=== PATIENT | female | born 1955 | race Caucasian/White ===

== ENCOUNTER 2018-10-29 06:01 | Inpatient (IN) | payer OTHER ==
[2018-10-29] MEDS ORDERED: FENTAnyl 50 MCG/ML VIAL (06:23)
[2018-10-29] MEDS ORDERED: PROPOFOL 20 ML (06:23)
[2018-10-29] MEDS ORDERED: LIDOCAINE 2% (SDV) 5 ML INJ (06:23)
[2018-10-29] MEDS ORDERED: ROCURONIUM 50 MG INJ (06:23)
[2018-10-29] MEDS ORDERED: MIDAZOLAM 1 MG/ML 2 ML INJ (06:23)
[2018-10-29] MEDS ORDERED: NEOSTIGMINE 3 MG/3 ML SYRINGE (06:23)
[2018-10-29] MEDS ORDERED: GLYCOPYRROLATE 0.4 MG INJ (06:23)
[2018-10-29] MEDS ORDERED: ONDANSETRON 4 MG INJ (06:24)
[2018-10-29] MEDS ORDERED: DEXAMETHASONE 4 MG/ML 1 ML INJ ×2 (06:24→07:58)
[2018-10-29] MEDS ORDERED: SUCCINYLCHOLINE CHLORIDE 100 MG/5 ML SYG IV (06:32)
[2018-10-29] MEDS ORDERED: CEFAZOLIN 1 GM INJ ×2 (06:32→07:00)
[2018-10-29 06:51] LABS: ADD MAN DIFF? NO
[2018-10-29 06:53] LABS: WHITE BLOOD COUNT 5.1 10^3/ul (4.8-10.8)
[2018-10-29 06:53] LABS: BASOPHIL # 0.1 10^3/ul (0.0-0.1); EOSINOPHILS # 0.1 10^3/ul (0.0-0.5); EOSINOPHILS % 1.4 % (0.0-7.0); HEMATOCRIT 39.6 % (37.0-47.0); HEMOGLOBIN 13.4 g/dl (12.0-16.0); LYMPHOCYTES # 1.7 10^3/ul (0.8-2.9); LYMPHOCYTES % 33.1 % (15.0-51.0); MEAN CORPUSCULAR HEMOGLOBIN 32.1 pg (29.0-33.0); MEAN CORPUSCULAR HGB CONC 33.8 g/dl (32.0-37.0); MEAN PLATELET VOLUME 10.4 fl (7.4-10.4); MONOCYTE # 0.6 10^3/ul (0.3-0.9); MONOCYTES % 10.7 % (0.0-11.0); NEUTROPHIL # 2.8 10^3/ul (1.6-7.5); NEUTROPHILS % 53.8 % (39.0-77.0); PLATELET COUNT 155 10^3/UL (140-415); RED BLOOD COUNT 4.17 10^6/ul (4.20-5.40); RED CELL DISTRIBUTION WIDTH 11.6 % (11.5-14.5)
[2018-10-29 07:11] LABS: INR 1.03; PROTIME 13.6 Sec (11.9-14.9); PT RATIO 1.1
[2018-10-29 07:12] LABS: PARTIAL THROMBOPLASTIN TIME 29.7 Sec (23.0-35.0)
[2018-10-29 07:22] LABS: ALANINE AMINOTRANSFERASE 21 IU/L (13-69); ALBUMIN 4.3 g/dl (3.3-4.9); ALBUMIN/GLOBULIN RATIO 1.53; ALKALINE PHOSPHATASE 69 IU/L (42-121); ANION GAP 7 (5-13); ASPARTATE AMINO TRANSFERASE 35 IU/L (15-46); BILIRUBIN,INDIRECT 1.2 mg/dl (0-1.1); BILIRUBIN,TOTAL 1.2 mg/dl (0.2-1.3); BLOOD UREA NITROGEN 16 mg/dl (7-20); CALCIUM 9.2 mg/dl (8.4-10.2); CARBON DIOXIDE 28 mmol/L (21-31); CHLORIDE 107 mmol/L (97-110); CREATININE 0.59 mg/dl (0.44-1.00); Estimated GFR > 60 mL/min (>60); GLUCOSE 89 mg/dl (70-220); POTASSIUM 4.5 mmol/L (3.5-5.1); SODIUM 142 mmol/L (135-144); TOTAL PROTEIN 7.1 g/dl (6.1-8.1)
[2018-10-29] MEDS: LIDOCAINE 1%/EPI 30 ML INJ (07:43)
[2018-10-29] MEDS: BUPIVACAINE 0.25% (MPF) 30 ML INJ (07:43)
[2018-10-29] MEDS: POLYMYXIN/BACITRACIN 1L IRRIG (07:43)
[2018-10-29] MEDS: THROMBIN 5000 UNIT VIAL (07:43)
[2018-10-29] MEDS: GELATIN SIZE 100 SPONGE (07:43)
[2018-10-29] MEDS: CEFTRIAXONE 1 GM/50 ML (PMX) 50 ML IVPB (08:30)
[2018-10-29] MEDS ORDERED: LIDOCAINE 4% CR (09:45)
[2018-10-29] MEDS ORDERED: FLUMAZENIL 0.5 MG INJ (10:23)
[2018-10-29] MEDS ORDERED: HYDROmorphONE 1 MG/5 ML IV SYRINGE IV ×3 (11:00)
[2018-10-29] MEDS ORDERED: ONDANSETRON 4 MG INJ IV (11:00)
[2018-10-29] MEDS ORDERED: EPHEDrine SULFATE 50 MG/5 ML SYG IV (11:00)
[2018-10-29] MEDS ORDERED: DIPHENHYDRAMINE 50 MG INJ IV (11:00)
[2018-10-29] MEDS ORDERED: MEPERIDINE 25 MG INJ IV (11:00)
[2018-10-29] MEDS ORDERED: FENTAnyl 50 MCG/ML VIAL IV ×3 (11:00)
[2018-10-29] MEDS ORDERED: KETOROLAC 30 MG INJ IV (11:00)
[2018-10-29] MEDS ORDERED: ZOLPIDEM 5 MG TAB PO (11:30)
[2018-10-29] MEDS: D5W-0.45 NACL + KCL 20 MEQ 1,000 ML IV ×2 (13:09→21:32)
[2018-10-29] MEDS: CYCLOBENZAPRINE 10 MG TAB PO ×2 (13:18→21:22)
[2018-10-29] MEDS: morphine 1 MG/ML 30 ML (PCA) IV (21:24)
[2018-10-30] MEDS: ACETAMINOPHEN 325 MG TAB PO (01:37)
[2018-10-30] MEDS: D5W-0.45 NACL + KCL 20 MEQ 1,000 ML IV ×2 (05:44→18:30)
[2018-10-30] MEDS: CYCLOBENZAPRINE 10 MG TAB PO ×3 (09:46→21:11)
[2018-10-30] MEDS: ONDANSETRON 4 MG INJ IV (10:39)
[2018-10-30] MEDS: HYDROCODONE/APAP (7.5/325) TAB PO ×3 (11:04→21:14)
[2018-10-31] MEDS: D5W-0.45 NACL + KCL 20 MEQ 1,000 ML IV (03:15)
[2018-10-31] MEDS: HYDROCODONE/APAP (7.5/325) TAB PO ×2 (06:29→12:38)
[2018-10-31] MEDS: CYCLOBENZAPRINE 10 MG TAB PO ×2 (08:43→12:38)
== END 2018-10-31 17:00 | DRG 520 ==
LOC: REC 06:01 → MS1 11:46
PROC: 01NB0ZZ Release Lumbar Nerve, Open Approach (ICD-10-PCS; principal; 2018-10-29 07:29)
PROC: 0SB20ZZ Excision of Lumbar Vertebral Disc, Open Approach (ICD-10-PCS; 2018-10-29 07:29)
DX: M48.061 Spinal stenosis, lumbar region without neurogenic claudication (principal); M51.16 Intervertebral disc disorders with radiculopathy, lumbar region
CPT/HCPCS: 72020; 80053; 85025; 85610; 85730; 86850; 86900; 86901; 87086; 88304; 88311; 97116; 97162; 97530